=== PATIENT | male | born 1970 | race Caucasian/White ===

== ENCOUNTER 2024-01-16 13:45 | Inpatient (IN) | payer BC, SELFPAY ==
[2024-01-16] MEDS ORDERED: methylPREDNISolone Sod Succ/PF 125 MG/2 ML VIAL ONE (14:18)
[2024-01-16] MEDS ORDERED: Magnesium 2 GM/50 ML BAG (IN WATER) ONE (14:18)
[2024-01-16] MEDS ORDERED: Ipratropium/Albuterol 3 ML NEB ONE (14:35)
[2024-01-16] MEDS ORDERED: Albuterol 2.5 MG (0.5 mL) NEB ONE (14:35)
[2024-01-16 14:43] LABS: Actual Bicarbonate (HCO3a) 32.6 mEq/L (22-28); Analyzer IN Cardio ER; Calcium, Ionized (arterial) 1.13 mmol/L (1.12-1.30); Carboxyhemoglobin (COHb) 1.8 gm% (0.0-3.0); Hematocrit-ABG 37 % (42.0-52.0); Hemoglobin (Hb) 12.7 g/dL (14.0-18.0); Potassium - ABG Lab 4.87 mmol/L (3.70-5.30); pH, Arterial 7.284 (7.35-7.45)
[2024-01-16 14:51] LABS: CO2 Tension 70.4 mmHg (35.0-45.0); O2 Tension (PaO2), arterial 48.5 mmHg (80.0-100.0)
[2024-01-16 14:52] LABS: Puncture Site Right Radial artery
[2024-01-16 15:09] LABS: Troponin I 0.035 ng/mL (< 0.028)
[2024-01-16] MEDS ORDERED: Azithromycin 500 MG VIAL ONE ×2 (15:21→15:25)
[2024-01-16] MEDS ORDERED: Lorazepam 2 MG/ML VIAL ONE (16:43)
[2024-01-16 16:44] LABS: Actual Bicarbonate (HCO3a) 28.9 mEq/L (22-28); Analyzer IN Cardio ER; Base Excess (BEa) 0.5 mEq/L (-2.0 to +3.0); Calcium, Ionized (arterial) 1.14 mmol/L (1.12-1.30); Carboxyhemoglobin (COHb) 1.9 gm% (0.0-3.0); Hematocrit-ABG 39 % (42.0-52.0); Hemoglobin (Hb) 13.4 g/dL (14.0-18.0); O2 Tension (PaO2), arterial 68.6 mmHg (80.0-100.0); Potassium - ABG Lab 4.92 mmol/L (3.70-5.30)
[2024-01-16 16:48] LABS: CO2 Tension 64.4 mmHg (35.0-45.0); Puncture Site Right Radial artery
[2024-01-16] MEDS ORDERED: Ondansetron PF 4 MG/2 ML Vial IVP PRN (17:25)
[2024-01-16] MEDS ORDERED: Ondansetron ODT 4 MG TAB PO PRN (17:25)
[2024-01-16] MEDS ORDERED: traMADol HCl 50 MG TAB PO PRN (17:25)
[2024-01-16] MEDS ORDERED: Ipratropium/Albuterol 3 ML NEB NEB PRN (18:12)
[2024-01-16 18:24] LABS: Lactic Acid 1.08 mmol/L (0.5-2.2)
[2024-01-16] MEDS ORDERED: Famotidine/PF 20 mg/2ml Vial SLOW IVP SCH (21:00)
[2024-01-16] MEDS ORDERED: Famotidine 20 MG TAB PO SCH (21:00)
[2024-01-16 21:04] LABS: Troponin I 0.037 ng/mL (< 0.028)
[2024-01-16 21:05] VITALS: BMI 26.0
[2024-01-16 21:37] LABS: Lactic Acid 1.25 mmol/L (0.5-2.2)
[2024-01-16] MEDS ORDERED: Senokot S 8.6-50 MG TAB PO PRN (21:38)
[2024-01-16] MEDS: busPIRone HCl 5 MG TAB PO SCH (21:49)
[2024-01-16] MEDS: OLANZapine 5 MG TAB PO SCH (21:49)
[2024-01-16] MEDS: hydrALAZINE 25 MG TAB PO SCH (21:49)
[2024-01-16] MEDS: Buprenorphine 2mg/Naloxone 0.5mg per 1 FILM SL SCH (21:54)
[2024-01-16] MEDS: cefTRIAXone\\ROCEPHIN 2 GM in Sodium Chloride 0.9% 100 ML IVPB SCH (22:38)
[2024-01-17 04:11] LABS: Bacteria/HPF None Seen HPF (None Seen); Bilirubin Negative (Negative); Blood, Urine Negative (Negative); Clarity Clear (Clear); Glucose, Urine (Dipstick) Normal (Negative); Ketone, Urine Negative (Negative); Leukocyte Negative Leu/uL (Negative); Nitrite Negative (Negative); Protein, Urine (Dipstick) 20 mg/dL (Neg-Trace); RBC/HPF 0-3 HPF (0-3); Specific Gravity, Urine 1.047 (1.002-1.036); Squamous Epithelial None Seen HPF (0-3); Urobilinogen Normal mg/dL (Less than 2); WBC/HPF 0-3 HPF (0-3); pH, Urine 6.5 (5.0-9.0)
[2024-01-17 04:17] LABS: Amphetamine Not Detected (NotDetected); Barbiturates Screen Not Detected (NotDetected); Benzodiazepine Screen Detected (NotDetected); Cocaine Metabolite Screen Not Detected (NotDetected); Methadone Not Detected (NotDetected); Methamphetamine Not Detected (NotDetected); Opiate Screen Not Detected (NotDetected); Oxycodone Screen Not Detected (NotDetected); Phencyclidine (PCP) Not Detected (NotDetected); THC/Cannabinoid Screen Not Detected (NotDetected); Tricyclic Screen Not Detected (NotDetected)
[2024-01-17 06:38] LABS: #Basophils Less than 0.03 10x3/uL (0.0-0.2); #Eosinphils Less than 0.03 10x3/uL (0.0-0.7); %Lymphocytes 11.7 % (21.0-51.0); %Monocytes 9.5 % (0.0-10.0); %Neutrophils 78.4 % (42.0-75.0); Hematocrit 38.8 % (42.0-52.0); Hemoglobin 11.5 g/dL (14.0-18.0); Mean Corpuscular HGB CONC 29.6 g/dL (32.0-36.0); Mean Corpuscular Hemoglobin 28.8 pg (27.0-31.0); Mean Platelet Volume 11.6 fL (7.4-10.4); Platelet Count 169 10x3/uL (130-400); RBC Distribution Width 15.4 % (11.5-14.5)
[2024-01-17 06:54] LABS: ALT (SGPT) 13 U/L (8-55); AST (SGOT) 13 U/L (5-34); Albumin 3.3 g/dL (3.5-5.0); Alkaline Phosphatase 64 U/L (40-110); Anion Gap 11 mmol/L (10-20); BUN (Urea Nitrogen) 24 mg/dL (8.4-25.7); Bilirubin, Total 0.2 mg/dL (0.2-1.2); CK (CPK) 116 U/L (30-200); Calc. Creatinine Clearance 145 mL/min (70-130); Calcium 8.6 mg/dL (7.8-10.44); Carbon Dioxide 34 mmol/L (22-29); Chloride 104 mmol/L (98-107); Estimated GFR 105; Globulin 2.7 g/dL (2.4-3.5); Glucose 111 mg/dL (70-105); Magnesium 2.5 mg/dL (1.6-2.6); Potassium 4.5 mmol/L (3.5-5.1); Sodium 144 mmol/L (136-145)
[2024-01-17 06:56] LABS: Phosphorus 3.1 mg/dL (2.3-4.7)
[2024-01-17] MEDS: Pantoprazole DR 40 MG TAB PO SCH (10:11)
[2024-01-17] MEDS: busPIRone HCl 10 MG TAB PO SCH (10:11)
[2024-01-17] MEDS: Polyethylene Glycol 3350 17 GM Packet PO SCH (10:12)
[2024-01-17] MEDS: Ipratropium/Albuterol 3 ML NEB NEB SCH (10:12)
[2024-01-17] MEDS: Enoxaparin 40 MG (0.4 mL) SYRINGE SC SCH (10:12)
[2024-01-17] MEDS: methylPREDNISolone Sod Succ 40 MG VIAL IVP SCH (10:13)
[2024-01-17] MEDS: Thiamine 100 MG TAB PO SCH (10:13)
[2024-01-17] MEDS: Gabapentin 300 MG CAP PO SCH (14:19)
[2024-01-17] MEDS: Azithromycin 500 MG in Sodium Chloride 0.9% 250 ML 250 ML IVPB SCH (14:20)
[2024-01-18 04:19] LABS: #Basophils 0.03 10x3/uL (0.0-0.2); #Eosinphils Less than 0.03 10x3/uL (0.0-0.7); %Basophils 0.4 % (0.0-1.0); %Eosinophils 0.1 % (0.0-10.0); %Lymphocytes 18.4 % (21.0-51.0); %Monocytes 7.6 % (0.0-10.0); %Neutrophils 73.1 % (42.0-75.0); Hematocrit 35.7 % (42.0-52.0); Hemoglobin 10.6 g/dL (14.0-18.0); Mean Corpuscular HGB CONC 29.7 g/dL (32.0-36.0); Mean Corpuscular Hemoglobin 28.7 pg (27.0-31.0); Mean Corpuscular Volume 96.7 fL (78.0-98.0); Mean Platelet Volume 12.1 fL (7.4-10.4); Platelet Count 185 10x3/uL (130-400); RBC Distribution Width 15.6 % (11.5-14.5); Red Blood Cell (RBC) Count 3.69 mill/uL (4.70-6.10)
[2024-01-18 04:48] LABS: ALT (SGPT) 11 U/L (8-55); AST (SGOT) 13 U/L (5-34); Albumin 3.2 g/dL (3.5-5.0); Alkaline Phosphatase 55 U/L (40-110); Anion Gap 9 mmol/L (10-20); BUN (Urea Nitrogen) 23 mg/dL (8.4-25.7); Bilirubin, Total 0.2 mg/dL (0.2-1.2); Calc. Creatinine Clearance 145 mL/min (70-130); Calcium 8.8 mg/dL (7.8-10.44); Carbon Dioxide 33 mmol/L (22-29); Chloride 107 mmol/L (98-107); Estimated GFR 105; Globulin 2.4 g/dL (2.4-3.5); Glucose 102 mg/dL (70-105); Protein, Total 5.6 g/dL (6.0-8.3); Sodium 145 mmol/L (136-145)
[2024-01-19] MEDS: predniSONE 20 MG TAB PO SCH (08:54)
[2024-01-19] MEDS: Azithromycin 250 MG TAB PO SCH (08:55)
[2024-01-19 09:10] LABS: #Basophils 0.03 10x3/uL (0.0-0.2); %Basophils 0.4 % (0.0-1.0); %Eosinophils 0.4 % (0.0-10.0); %Monocytes 8.4 % (0.0-10.0); %Neutrophils 71.5 % (42.0-75.0); Hematocrit 40.8 % (42.0-52.0); Hemoglobin 12.3 g/dL (14.0-18.0); Mean Corpuscular HGB CONC 30.1 g/dL (32.0-36.0); Mean Corpuscular Hemoglobin 28.9 pg (27.0-31.0); Mean Corpuscular Volume 95.8 fL (78.0-98.0); Mean Platelet Volume 11.6 fL (7.4-10.4); Platelet Count 208 10x3/uL (130-400); RBC Distribution Width 15.5 % (11.5-14.5); Red Blood Cell (RBC) Count 4.26 mill/uL (4.70-6.10)
[2024-01-19 09:34] LABS: ALT (SGPT) 13 U/L (8-55); AST (SGOT) 12 U/L (5-34); Albumin 3.6 g/dL (3.5-5.0); Alkaline Phosphatase 61 U/L (40-110); Anion Gap 11 mmol/L (10-20); BUN (Urea Nitrogen) 17 mg/dL (8.4-25.7); Bilirubin, Total 0.3 mg/dL (0.2-1.2); Calc. Creatinine Clearance 131 mL/min (70-130); Calcium 9.3 mg/dL (7.8-10.44); Carbon Dioxide 34 mmol/L (22-29); Chloride 104 mmol/L (98-107); Estimated GFR 103; Globulin 2.9 g/dL (2.4-3.5); Glucose 98 mg/dL (70-105); Potassium 3.4 mmol/L (3.5-5.1); Protein, Total 6.5 g/dL (6.0-8.3); Sodium 146 mmol/L (136-145)
[2024-01-19 15:19] VITALS: BMI 24.7
[2024-01-19] MEDS ORDERED: traZODone HCl 150 MG TAB PO SCH (21:00)
[2024-01-19] MEDS: Metoprolol Tartrate 25 MG TAB PO SCH (21:20)
[2024-01-19] MEDS: Benztropine 1 MG TAB PO SCH (21:20)
[2024-01-19] MEDS: Sertraline 100 MG TAB PO SCH (21:21)
[2024-01-19] MEDS: Acetaminophen 325 MG TAB PO PRN (21:22)
[2024-01-19] MEDS: traZODone HCl 50 MG TAB PO SCH (21:23)
[2024-01-19] MEDS: Prazosin HCl 1 MG CAP PO SCH (21:23)
[2024-01-20 07:15] LABS: #Basophils 0.03 10x3/uL (0.0-0.2); %Basophils 0.5 % (0.0-1.0); %Eosinophils 0.8 % (0.0-10.0); %Monocytes 8.5 % (0.0-10.0); %Neutrophils 64.9 % (42.0-75.0); Hematocrit 41.7 % (42.0-52.0); Hemoglobin 12.5 g/dL (14.0-18.0); Mean Corpuscular Hemoglobin 28.4 pg (27.0-31.0); Mean Corpuscular Volume 94.8 fL (78.0-98.0); Mean Platelet Volume 11.6 fL (7.4-10.4); Platelet Count 205 10x3/uL (130-400); RBC Distribution Width 15.2 % (11.5-14.5)
[2024-01-20 07:31] LABS: Anion Gap 13 mmol/L (10-20); BUN (Urea Nitrogen) 22 mg/dL (8.4-25.7); Calc. Creatinine Clearance 128 mL/min (70-130); Calcium 9.2 mg/dL (7.8-10.44); Carbon Dioxide 30 mmol/L (22-29); Chloride 106 mmol/L (98-107); Estimated GFR 103; Glucose 88 mg/dL (70-105); Potassium 3.6 mmol/L (3.5-5.1); Sodium 145 mmol/L (136-145)
[2024-01-20] MEDS: Amlodipine 10 MG TAB PO SCH (08:42)
[2024-01-21 05:54] LABS: #Basophils Less than 0.03 10x3/uL (0.0-0.2); %Basophils 0.3 % (0.0-1.0); %Eosinophils 0.9 % (0.0-10.0); %Lymphocytes 22.1 % (21.0-51.0); %Monocytes 7.2 % (0.0-10.0); %Neutrophils 69.2 % (42.0-75.0); Hematocrit 43.6 % (42.0-52.0); Hemoglobin 13.4 g/dL (14.0-18.0); Mean Corpuscular HGB CONC 30.7 g/dL (32.0-36.0); Mean Corpuscular Hemoglobin 28.8 pg (27.0-31.0); Mean Corpuscular Volume 93.6 fL (78.0-98.0); Mean Platelet Volume 11.4 fL (7.4-10.4); Platelet Count 232 10x3/uL (130-400); RBC Distribution Width 15.2 % (11.5-14.5); Red Blood Cell (RBC) Count 4.66 mill/uL (4.70-6.10)
[2024-01-21 06:10] LABS: Anion Gap 12 mmol/L (10-20); BUN (Urea Nitrogen) 21 mg/dL (8.4-25.7); Calc. Creatinine Clearance 129 mL/min (70-130); Calcium 9.6 mg/dL (7.8-10.44); Carbon Dioxide 30 mmol/L (22-29); Chloride 106 mmol/L (98-107); Estimated GFR 103; Glucose 95 mg/dL (70-105); Magnesium 2.2 mg/dL (1.6-2.6); Potassium 3.7 mmol/L (3.5-5.1); Sodium 144 mmol/L (136-145)
[2024-01-22 16:03] VITALS: TEMP 97.9
[2024-01-22 19:19] VITALS: BP 136/63
== END 2024-01-22 23:46 | disposition short-term general hospital (02) | DRG 193 ==
LOC: ERS 13:45 → CCU 18:17 → IMCU/EMU 01-17 15:10 → MSONC 01-19 17:18
PROVIDERS: ADMIT Internal Medicine; ATTEND Student in an Organized Health Care Education/Training Program
PROC: 5A09357 Assistance with Respiratory Ventilation, Less than 24 Consecutive Hours, Continuous Positive Airway Pressure (ICD-10-PCS; principal; 2024-01-16)
DX: J18.9 Pneumonia, unspecified organism (principal); G93.41 Metabolic encephalopathy; J96.01 Acute respiratory failure with hypoxia; J96.02 Acute respiratory failure with hypercapnia; R45.851 Suicidal ideations; E87.29 Other acidosis; G93.1 Anoxic brain damage, not elsewhere classified; F33.9 Major depressive disorder, recurrent, unspecified; F32.A Depression, unspecified; I10 Essential (primary) hypertension; I48.0 Paroxysmal atrial fibrillation; R91.1 Solitary pulmonary nodule; M41.84 Other forms of scoliosis, thoracic region; E27.8 Other specified disorders of adrenal gland; F17.210 Nicotine dependence, cigarettes, uncomplicated; R00.1 Bradycardia, unspecified; Z88.0 Allergy status to penicillin; Z71.6 Tobacco abuse counseling
CPT/HCPCS: 36415; 36416; 36600; 74018; 76700; 80048; 80053; 80306; 81001; 82140; 82533; 82550; 82805; 83605; 83735; 83880; 84100; 84145; 84443; 85025; 85379; 87040; 93005; 93306; 94640; 94660; 96365; 96375; J0456; J0572; J0696; J1650; J2060; J2919; J3475; J7050; J7512; J7611; J7620